=== PATIENT | female | born 1940 ===

== ENCOUNTER 2018-12-02 17:04 | Outpatient (CLI) | payer OTHER ==
[~2018-12-02 17:04] MED LIST: AMBIEN10 MG; PROZAC10 MG
== END 2018-12-02 17:28 | disposition home or self-care (01) ==
LOC: RAD 17:04
DX: J45.998 Other asthma (principal)

== ENCOUNTER → 2018-12-07 | Outpatient (CLI) | payer OTHER | END | disposition home or self-care (01) | LOC: MAMO-SONO 11:00 | DX: I13.11 Hypertensive heart and chronic kidney disease without heart failure, with stage 5 chronic kidney disease, or end stage renal disease (principal); M18.0 Bilateral primary osteoarthritis of first carpometacarpal joints; Z12.31 Encounter for screening mammogram for malignant neoplasm of breast; N60.11 Diffuse cystic mastopathy of right breast; N60.12 Diffuse cystic mastopathy of left breast; M25.561 Pain in right knee; M25.551 Pain in right hip ==

== ENCOUNTER → 2019-02-08 17:28 | Outpatient (CLI) | payer OTHER | END | disposition home or self-care (01) | LOC: RAD 17:28 | DX: M51.36 Other intervertebral disc degeneration, lumbar region (principal) ==

== ENCOUNTER 2020-05-09 14:26 | Outpatient (CLI) | payer OTHER | END 2020-05-09 14:33 | disposition home or self-care (01) | LOC: RAD 14:26 | PROVIDERS: ATTEND Orthopaedic Surgery | DX: M17.11 Unilateral primary osteoarthritis, right knee (principal); M25.561 Pain in right knee; M25.562 Pain in left knee | CPT/HCPCS: 73718 ==

== ENCOUNTER 2020-11-17 07:23 | Outpatient (CLI) | payer OTHER | END 2020-11-17 07:26 | disposition home or self-care (01) | LOC: NUCLEAR 07:23 → EDBD 07:23 → NUCLEAR 07:26 | PROVIDERS: ATTEND Internal Medicine Cardiovascular Disease | DX: R07.89 Other chest pain (principal); I50.1 Left ventricular failure, unspecified | CPT/HCPCS: 78452; 93017; A9500; J0153 ==